=== PATIENT | female | born 1975 | race Caucasian/White ===

== ENCOUNTER 2023-09-09 08:34 | Emergency (ER) | payer OTHER, SELFPAY ==
[2023-09-09 08:35] VITALS: BP 149/84; PULSE 84; RESP 16; TEMP 36.1; O2SAT 98; BMI 41.9
--- NOTE | 2023-09-09 08:56 | US_ITS ---
STUDY: ULTRASOUND TRANSVAGINAL CLINICAL: Female, 48 years old. Pelvic pain TECHNIQUE: Transvaginal COMPARISON: None. FINDINGS: Normal uterine size measuring 12.5 cm in maximal craniocaudal dimension. There are no myometrial masses. Normal endometrial thickness measuring 45 mm. There are no endometrial masses, and there is fluid in the endometrial cavity. Normal uterine cervix. Neither ovary visualized. There is no free fluid in the pelvis. US/Transvaginal Non- IMPRESSION: Uterus is enlarged with abnormally distended fluid-filled endometrium at 4.5 cm. No demonstrated endometrial mass, WE[employer]ER consultation recommended No demonstrated fibroid Neither ovary visualized, no demonstrated free fluid Electronically Signed: Tevin Mcneal MD at 10:20 EDT ,
--- NOTE | 2023-09-09 09:01 | EDS_ITS ---
HPI HPI - GI History of Present Illness Chief Complaint: Abd Pain Informant: patient and spouse/S.O. Abdominal Pain/Flank Pain Onset: Days Context: Gradual Onset Timing: Intermittent Quality: Cramping Location: Diffuse and - (Suprapubic) Current Severity: Mild Maximum Severity: Moderate Worsened by: Nothing Relieved by: Nothing Nausea/Vomiting/Emesis GI Symptom: Positive for Nausea and Vomiting Onset: Yesterday Severity: Mild Diarrhea/Melena/Hematochezia GI Symptom: Negative for Diarrhea, Melena or Hematochezia Associated Symptoms Associated Symptoms: Negative for Dysuria, Frequency, Hematuria or Urgency Narrative Narrative: 48-year-old female history of uterine ablation done in April. States she has had lower abdominal pelvic pain since Saturday. Is been intermittent. At times is intense. Currently is about a 5 out of 10. Denies any documented fever. No dysuria. No vaginal bleeding or discharge. Saturday went to another emergency department. There had a CAT scan showing a stone in her kidney and a uterine fibroid. She was placed on Levaquin due to an elevated white count but did not have any obvious source of infection. States that she is having the pain again. She has had 3 prior C-sections. Still has her appendix and gallbladder. No other abdominal surgeries. Prior similar symptoms: Yes Recent Illness/Hospitalization: No PFSH PFSH Home Medications ?Medication ?Instructions ?Recorded ?Last Taken ?Type ondansetron 4 mg disintegrating 4 mg PO Q8H PRN PRN Nausea #10 tabs 07/07/13 Unknown Rx tablet Allergy/AdvReac Type Severity Reaction Status Date / Time No Known Allergies Allergy Verified 09/09/23 08:34 Social History Smoking Status: Light Smoker (<10/day) ROS ROS ED ROS Narrative Lower abdominal cramping. Nausea and vomiting due to pain. Review of Systems ROS Unobtainable: Denies due to encephalopathy Constitutional Constitutional ED: Reports fever(s) and subjective; Denies chills ENT ENT ED: Denies ear pain Cardiovascular Cardiovascular: Denies chest pain Respiratory/Chest Respiratory/Chest: Denies cough or dyspnea Gastrointestinal Gastrointestinal: Reports abdominal pain, nausea and vomiting; Denies constipation, diarrhea or melena Genitourinary Genitourinary ED: Denies dysuria or hematuria Musculoskeletal Musculoskeletal: Denies arthralgias or back pain Integumentary Denies abscess Neurologic Neurologic: Denies headache(s) Psychiatric Psychiatric: Denies anxiety Endocrine Endocrinology: Denies polydipsia, polyphagia or polyuria Hematologic/Lymphatic Hematologic/Lymphatic: Denies easy bleeding or easy bruising Allergic/Immunologic Allergic/Immunologic ED: Denies mouth swelling, tongue swelling or urticaria EXAM Physical Exam Narrative Exam Narrative: 40-year-old female no acute distress. Vital signs stable afebrile. at bedside. H EENT exam unremarkable. Lungs clear. Heart regular rhythm rate about 80 no murmur. Abdomen soft nondistended normal bowel sounds without peritoneal signs. Very mild suprapubic tenderness. No hernia or mass. No distention. Moving all 4 extremities. Nontender no edema. Neurologically she is awake and alert. Answering questions following commands. Const Vital Signs: 09/09/23 08:35 09/09/23 10:00 09/09/23 11:00 Temperature 96.9 F L 97.6 F L Temperature Source Temporal Temporal Pulse Rate 84 81 88 Respiratory Rate 16 18 18 Blood Pressure 149/84 H 106/55 L 124/75 H Blood Pressure Mean 105 72 91 Pulse Ox 98 98 98 Oxygen Delivery Method Room Air Room Air Room Air 09/09/23 11:00 Temperature Temperature Source Pulse Rate 81 Respiratory Rate 18 Blood Pressure 124/76 H Blood Pressure Mean 92 Pulse Ox 98 Oxygen Delivery Method Room Air Positive well nourished and well developed; Negative for cachectic, contractures or unkempt General Appearance ED: well developed and NAD; Negative for unkempt, cachectic, contractures or pallor Nutritional Appearance: Negative for cachectic HEENT Reports moist mucous membranes; Denies dry mucous membranes normocephalic and atraumatic; Negative for trauma or tenderness Mouth ED: No dry mucous membranes Mouth: No dry mucous membranes Eyes PERRL and EOMs intact bilaterally General Eye ED: Negative for pale conjunctiva or scleral icterus Neck no lymphadenopathy, supple and no JVD General: Negative for tenderness Carotids: Negative for other Lymph Lymphatic: Negative for other Resp normal respiratory effort and clear to auscultation bilaterally Effort and Inspection: Negative for respiratory distress Auscultation: Negative for rales, rhonchi, wheezes or diminished lung sounds Cardio regular rate, regular rhythm, S1 normal heart sound, S2 normal heart sound and no murmurs Rate: Negative for bradycardia or tachycardic Rhythm: Negative for abnormal rhythm GI no masses; Negative for non-tender Inspection: Negative for abdominal distention Auscultation: normoactive bowel sounds Palpation: soft and tender; Negative for guarding, hernia, mass, pulsatile mass or rebound tenderness present Extremity full ROM General Extremety ED: Negative for edema or tenderness General Extremity: Negative for edema Neuro CN's II-XII intact bilaterally and moves all extremities Sensorium / Orientation: alert, oriented to person, oriented to place and oriented to time; Negative for orientation impaired, confused, lethargic or stuporous Motor Exam: strength 5/5 throughout Psych mental status grossly normal and thought process normal Appearance: Negative for unkempt Attitude: No agitated Mood & Affect: Negative for depressed, anxious or tearful Skin no wounds General Skin Exam: Negative for jaundice or pallor Lesions: no lesions Rashes: no rashes Trauma: Negative for abrasion Nails: Negative for discolored MDM MDM MDM Narrative Medical decision making narrative: 48-year-old female with lower abdominal pain. Seen at another emergency department on Saturday for which a CAT scan was done and they saw what appears to be uterine fibroid. She was started on Levaquin due to an elevated white count but there is no source of infection. She has a benign exam at this time. She is stating she is having 5 out of 10 lower abdominal pain. She will be given morphine and Zofran. A ultrasound will be obtained and I will get home labs. She had the CAT scan results with her I also looked on MyChart from her cell phone and reviewed her most recent labs at the [facility]. Multiple repeat exams patient is doing well. We went over test results. Her ultrasound showed fluid-filled uterus. I discussed that with [facility] on-call for [facility] Dr. Marie Cherry. They will follow up the patient as outpatient in our office. Typically this is handled through an office procedure. She and I are comfortable with the plan. Patient can use Tylenol and/or Motrin for pain. I will write her for limited pain medications if she chooses. History & Record Review Discussion w/independent historian: Patient Additional record(s) reviewed:: Prior inpatient record, Prior outpatient record, Prior ED visit and Prior labs Lab Data Attestation: I reviewed the patient's lab results. Lab results narrative: CBC shows a mildly elevated white count of 13. H&H 12.6 and 38. Platelets 182. Electrolytes show a gap of 6. Normal BUN of 11 creatinine 0.8. Liver enzymes are normal. Lipase normal at 29. Serum test negative. UA shows no nitrates. No red cells no white cells. Rare bacteria. Labs: Laboratory Results - last 24 hr 09/09/23 09/09/23 09:08 09:51 WBC 13.0 H RBC 4.21 Hgb 12.6 Hct 38.0 MCV 90.3 MCH 29.9 MCHC 33.2 RDW Std Deviation 43.8 RDW Coeff of [place] 13.2 Plt Count 182 MPV 9.6 Immature Gran % (Auto) 0.400 Neut % (Auto) 79.0 H Lymph % (Auto) 11.6 L [place] % (Auto) 7.9 Eos % (Auto) 0.8 Baso % (Auto) 0.3 Absolute Neuts (auto) 10.3 H Absolute Lymphs (auto) 1.50 Nucleated RBC % 0 Sodium 138 Potassium 3.6 Chloride 106 Carbon Dioxide 26.0 Anion Gap 6 BUN 11 Creatinine 0.87 Estim Creat Clear Calc 96.33 Est GFR (MDRD) Af Amer 90 Est GFR (MDRD) Non-Af 74 BUN/Creatinine Ratio 12.7 Glucose 111 H Calcium 8.6 Total Bilirubin 1.10 H AST 11 L ALT 14 Alkaline Phosphatase 81 Total Protein 6.5 Albumin 3.0 L Globulin 3.5 Albumin/Globulin Ratio 0.9 Lipase 29 Serum , Qual NEGATIVE Urine Color Yellow Urine Clarity Cloudy Urine pH 6.0 Ur Specific [place] 1.010 Urine Protein Negative Urine Glucose (UA) Normal Urine Ketones Negative Urine Occult Blood 10 H Urine Nitrite Negative Urine Bilirubin Negative Urine Urobilinogen Normal Ur Leukocyte Esterase 100 H Urine RBC 0 SEEN Urine WBC 0-5 SEEN Ur Squamous Epith Cells 10-25 SEEN Urine Bacteria RARE Urine Mucus 0 SEEN Radiography Diagnostic Testing: Clinical Impression(s) from Imaging Studies Transvaginal US 09/09/23 08:56 IMPRESSION: Uterus is enlarged with abnormally distended fluid-filled endometrium at 4.5 cm. No demonstrated endometrial mass, CYLINDER FILLER consultation recommended No demonstrated fibroid Neither ovary visualized, no demonstrated free fluid Electronically Signed: Tevin Mcneal MD at 10:20 EDT , Discharge Plan Triage Chief Complaint: Abd Pain ED Provider: Jcarlos Mendoza Dx/Rx/DC Orders Clinical Impression: Pelvic pain Instructions: Abdominal Pain Prescriptions: No Action ondansetron 4 MG tablet 4 mg PO Q8H PRN PRN (Reason: Nausea) Qty: 10 0RF Primary Care Provider: Alicia Francisco NP Referrals: Ananya Munoz MD [Med Staff - Active Staff] - As soon as possible Alicia Francisco NP, [employer] [Primary Care Provider] - Print Language: Hong [place]er Disposition Disposition: Home, Self Care
[2023-09-09] MEDS: morphine 8 MG/ML Syringe 6 MG IV (09:08)
[2023-09-09] MEDS: Ondansetron 4 MG/2 ML Vial IV ×2 (09:08→11:07)
[2023-09-09 09:13] LABS: Absolute Neutrophil Count 10.3 X10^3/uL (2.0-7.7); Basophil# 0.04 X10^3/uL; Basophil% 0.3 % (0-1); Eosinophil# 0.11 X10^3/uL; Eosinophils% 0.8 % (0-5); Hemoglobin 12.6 g/dL (12.0-15.0); Lymphocyte % 11.6 % (19-41); Mean Corp Hgb Conc 33.2 g/dL (32-36); Mean Corpuscular Hgb 29.9 pg (27.0-32.0); Mean Corpuscular Volume 90.3 fL (81-99); Mean Platelet Vol. 9.6 fl (6.2-12.0); Monocyte# 1.02 X10^3/uL; Monocyte% 7.9 % (0-10); NRBC Flagged by Analyzer 0 % (0-5); Neutrophil # 10.26 X10^3/uL (2.7-7.7); Platelet Count 182 K/mm3 (150-450); RBC Distribution Width CV 13.2 % (11.6-14.6); RBC Distribution Width SD 43.8 fl (35.1-43.9); Red Blood Count 4.21 M/mm3 (4.2-5.4)
[2023-09-09 09:28] LABS: Internal QC Validated? YES +Cl - CLEAR BKGD; Pregnancy, Serum, hCG Quali. NEGATIVE Negative
[2023-09-09 09:35] LABS: ALB/GLOB Ratio 0.9 RATIO (0.9-2.4); AST(SGOT) 11 U/L (15-37); Alanine Aminotransfer ALT/SGPT 14 U/L (13-56); Alkaline Phosphatase 81 U/L (45-117); Anion Gap 6 (5-15); BUN 11 mg/dL (7-18); BUN/Creat Ratio 12.7 RATIO (10-20); Calcium,Total 8.6 mg/dL (8.5-10.1); Chloride 106 mmol/L (98-107); Creatinine, Serum 0.87 mg/dL (0.55-1.02); EST Glomerular Filtration Rate 74 mL/min (>60); Est Glom Filt Rate - Afr Amer 90 mL/min (>60); Estimated Creatinine Clearance 96.33 ml/min; Globulin 3.5 g/dL (2.2-4.2); Glucose 111 mg/dL (74-106); Lipase 29 U/L (13-75); Potassium 3.6 mmol/L (3.5-5.1); Protein, Total 6.5 g/dL (6.4-8.2); Sodium Level 138 mmol/L (136-145)
[2023-09-09 09:58] LABS: Mucous, Urine 0 SEEN /hpf (<or=2+); Red Blood Cells-Urine 0 SEEN /hpf (0-5)
[2023-09-09 09:59] LABS: Color, Urine Yellow (Yellow); Glucose, Dipstick Normal (Normal); Ketone-Dipstick Negative (Negative); Leukocyte Esterase-Dipstick 100 /ul (Negative); Nitrite-Dipstick Negative (Negative); Occult Blood-Urine 10 /ul (Negative); Protein-Dipstick Negative (Negative); Urine Bilirubin Dipstick Negative (Negative); Urine Clarity Cloudy (Clear); Urine Urobilinogen Normal (Normal)
[2023-09-09 10:00] VITALS: BP 106/55; PULSE 81; RESP 18; O2SAT 98
[2023-09-09 10:11] LABS: Bacteria RARE /hpf (None Seen); Squamous Epithelial Cells - UA 10-25 SEEN /hpf (5-10); White Blood Cells 0-5 SEEN /hpf (0-5)
[2023-09-09 11:00] VITALS: BP 124/75; BP 124/76; PULSE 81; PULSE 88; RESP 18; TEMP 36.4; O2SAT 98
[2023-09-09] MEDS: Morphine 4 MG/ML Syringe IV ×2 (11:07→12:49)
[2023-09-09 12:41] VITALS: BP 154/90; PULSE 97; RESP 17; O2SAT 100
== END 2023-09-09 12:53 | disposition home or self-care (01) ==
PROVIDERS: Emergency Provider Emergency Medicine; PCP Nurse Practitioner Family; Visit Provider Emergency Medicine
DX: R10.2 Pelvic and perineal pain (principal); N85.2 Hypertrophy of uterus
CPT/HCPCS: 76830; 80053; 81001; 83690; 84703; 85025; 96374; 96375; 96376; 99283; J7030; A4216; J2405